=== PATIENT | female | born 1990 | race Caucasian/White ===

== ENCOUNTER 2023-03-16 19:48 | Outpatient (REF) | payer BC, SELFPAY ==
[2023-03-22 12:08] LABS: Age Gdln ACOG Testing Note (.); HPV Aptima Negative (Negative); IGP, Aptima HPV, rfx 16/18,45 Note (.)
== END 2023-03-16 19:49 | disposition home or self-care (01) ==
LOC: LAB 19:48
PROVIDERS: Visit Provider Obstetrics & Gynecology
DX: Z01.419 Encounter for gynecological examination (general) (routine) without abnormal findings (principal)
CPT/HCPCS: 87624; G0145

== ENCOUNTER 2023-08-31 16:41 | Emergency (ER) | payer BC, SELFPAY ==
[2023-08-31 16:44] VITALS: BP 134/98; PULSE 122; TEMP 38.4; O2SAT 98; BMI 22.7
--- OUTSIDE RECORDS SUMMARY | 2023-08-31 16:50 | XMS_ITS | CCD ---
Author Organization [facility] Care Team Providers Care Folder Machine Name Role Phone REQUEST, DR NONE LISTED Primary Care Unavaila JEAN CLAUDE Borges Admitting Unavailable JEAN CLAUDE BELTRAN Attending Unavailable JEAN CLAUDE BELTRAN Consulting Unavailable KARASIK, DR AGUIRRE Admitting Unavailable KARASIK, DR AGUIRRE Attending Unavailable REQUEST, NONE LISTED Primary Care Unavailcharles DIA, DR AGUIRRE Consulting Unavailable ZIEBER, DR JAMES Obrien Consulting Unavailable KARASIK, DR AGUIRRE Admitting Unavailable KARASIK, DR AGUIRRE Attending Unavailable REQUEST, NONE LISTED Primary Care Unavailcharles DIA, DR AGUIRRE Consulting Unavailable ABHIEBER, DR JAMES Obrien Consulting Unavailable [facility] -Lab Draw Family [facility] Attending Unavailable Raquel Stevenson Attending Unavailable Raquel Stevenson Attending Unavailable Raquel Stevenson Attending Unavailable Allergies Allergy Classification Reported Allergen(s) Allergy Type Date of Onset Reaction(s) Facility (2 sources) Latex; Translations: [Latex] Drug allergy (disorder) 09-04-2013 [facility] Repository Problems Problem Classification Problem Date Documented Da te Episodic/Chronic Nonmalignant breast conditions (6 sources) Solitary cyst of right breast; Translations: [Nipple discharge] Onset: 06-30-2021 Episodic Other screening for suspected conditions (not mental disorders or infectious disease) (4 sources) Other abnormal and inconclusive findings on diagnostic imaging of breast; Translations: [OTH ABN INCONCL FIND DX IMAG BREAST] Onset: 07-25-2021 Episodic Results Test Name Value Interpretation Reference Range Facil ity Ambulatory Visit Summaryon 0 01-01-2023 Ambulatory Visit Summary EMA VALENZUELA :1990 Visit Date:01/01/2023 Ambulatory Visit Instructions Your Diagnosis Wellness examination BMI 21.0-21.9, adult Non-smoker Your Care Team Attending Physician - Raquel Reardon Primary Care Physician - Raquel Reardon Procedures Performed Cyst, Tonsillectomy. Discharge Vitals Heart Rate (Peripheral) 68 Respiratory Rate 18 Blood Pressure 110/78 Height 166.8 cm Height 66 in Weight 58.70 kg Weight 129.14 lb BMI 21.1 What to do next Scheduled Follow-Up Appointments Wednesday 9:20 AM EDT Where: [facility] Invalid Interpretation Code BMI 21.0-21.9, adult [facility] Family [facility] Office/Clini c Noteon 01-01-2023 Family Medicine Office/Clinic Note HPI Staff Ema is a 32 year old female presents to establish care Establish Care: History: Last provider: Dr Pate Specialist: Dr Khurram ALLISON Any recent labs: no labs within the last year Health Maintenance UTD: Colonoscopy: no Mammogram: 2021 normal Pelvic/Pap:2019 normal covid: none Acute: Current issues/complaints: pt states she had gestational diabetes and she has had some of the same symptoms from when she was . pt states when she eats high carb meals she will feel like she has brain fog and will fell fatigued. History of Present Illness pt presents today for wellness visit. Review of Systems PHQ Score Initial Depression Screen Score: 0 ROS - Provider Constitutional: no fever, no chills, no sweats, no fatigue Respiratory: no shortness of breath, no cough, no orthopnea, no wheezing. Cardiovascular: no chest pain, no palpitations, no edema. Neurologic: no headache, no dizziness, no numbness, no weakness. Physical Exam Vitals & Measurements HR: 68(Peripheral) RR: 18 BP: 110/78 SpO2: 98% HT: 66 in HT: 166.8 cm WT: 58.70 kg WT: 129.14 lb BMI: 21.1 General: alert, no acute distress ENMT: oral mucosa moist, no pharyngeal erythema or exudate Cardiovascular: regular rate and rhythm, normal peripheral perfusion Respiratory: Lungs CTA, respirations non labored Extremities: no deformity, no trauma Neurological: oriented x 4, LOC appropriate for age, CN II-XII intact, motor strength equal & normal bilaterally, speech normal Assessment/Plan 1. Wellness examination (Z00.00: Encounter for general adult medical examination without abnormal findings) pt presents today to establish care/wellness visit. pt is not fasting so she will return next Wednesday when she is fasting to have labs done. pt states that she was gestational diabetic and was never really tested after having her child 3 years ago and is concerned that she is having trouble with her blood sugar. when she eats heavy carbs she feels the same way she did when she was and her BS was high. will check labs. physical exam WNL. All questions answered. RTC as needed Ordered: CBC w/ Auto Diff Comprehensive Metabolic Panel Lipid Panel Thyroid Stimulating Hormone 2. BMI 21.0-21.9, adult (Z68.21: Body mass index [BMI] 21.0-21.9, adult) BMI eduction complete Ordered: CBC w/ Auto Diff Comprehensive Metabolic Panel Lipid Panel Thyroid Stimulating Hormone 3. Non-smoker (Z78.9: Other specified health status) continue not smoking Ordered: CBC w/ Auto Diff Comprehensive Metabolic Panel Lipid Panel Thyroid Stimulating Hormone Follow-up No qualifying data available Problem List/Past Medical History Ongoing Wellness examination Historical No qualifying data Procedure/Surgical History Cyst, Tonsillectomy. Medications No active medications Allergies Latex (Hives) Social History Tobacco Never (less than 100 in lifetime) Tobacco Use:. Never Smokeless Tobacco Use:. Household tobacco concerns: No., 01/01/2023 Family History Diabetes mellitus type 2: Grandparent. Hypertension: Grandparent. Immunizations Vaccine Date Status influenza virus vaccine, inactivated 03/02/2022 Recorded influenza virus vaccine, inactivated 03/04/2021 Recorded influenza virus vaccine, inactivated 03/04/2020 Recorded Normal [facility] Comment on above: Result Comment: Electronically Signed By : Raquel Reardon\sunshine\Date and Time Signed: 01/01/23 13:57 EDT MAMMO POST BIOPSY RIGHTon MAMMO POST BIOPSY RIGHT Patient: EMA VALENZUELA. Exam Date: 07/25/2021 : 1990 Gender:F Ordering : DR TIMOTHY DIA . Admission #: [id number] Family : Order #: [id number] CLICK HERE TO VIEW EXAM This report includes an Addendum and supersedes previous reports for this exam. RADIOLOGY REPORT PROCEDURE: MAMMOGRAM POST BIOPSY IMAGES COMPARISON: US VAC ASST BX BRST RT W CLIP, 07/25/2021. US BREAST RIGHT LIMITED, 07/16/2021. MG MAMM RIO DIAG W CAD, 07/16/2021. INDICATIONS: Mammography abnormal BREAST COMPOSITION: Heterogeneously dense,which may obscure small masses. FINDINGS: BIOPSY MARKER: A metallic marker has been placed in the targeted location within the subareolar region of the right breast. BREAST FINDINGS: Expected post biopsy findings. RECOMMENDATIONS: Dictated by: James Correa M.D. on 07/25/2021 at 09:57 Approved by: James Correa M.D. on 07/25/2021 at 09:59 ADDENDUM: FINDINGS: DIAGNOSTIC CATEGORY 3--PROBABLY BENIGN FINDING. THE FOLLOWING FINDING(S) HAS A HIGH PROBABILITY OF A BENIGN ETIOLOGY: RECOMMENDATIONS: SHORT TERM FOLLOW-UP DIAGNOSTIC MAMMOGRAM RIGHT BREAST IN 6 MONTHS. Dictated by: James Correa M.D. on 07/30/2021 at 15:48 Approved by: James Correa M.D. on 07/30/2021 at 15:48 Normal [facility] US VAC ASST BX BRST RT W CLI Solo 07-25-2021 US VAC ASST BX BRST RT W CLIP Patient: EMA VALENZUELA Exam Date: 07/25/2021 : 1990 Gender:F Ordering : DR TIMOTHY DIA . Admission #: [id number] Family : Order #: [id number] CLICK HERE TO VIEW EXAM This report includes an Addendum and supersedes previous reports for this exam. RADIOLOGY REPORT PROCEDURE: ULTRASOUND BIOPSY VACCUUM ASSISTED RIGHT WITH CLIP COMPARISON: US BREAST RIGHT LIMITED, 07/16/2021. INDICATIONS: Mammography abnormal DESCRIPTION: After obtaining informed consent, a vacuum assisted ultrasound-guided biopsy was performed in the usual sterile manner. The location of the biopsy was then marked as indicated below. FINDINGS: RECOMMENDATIONS: SPECIMEN #, LOCATION: 3 core specimens; subareolar right breast. BIOPSY NEEDLE: 13 gauge Elite (r) vacuum core biopsy needle. MARKERS(S) PLACED: A single metallic marker was placed in the appropriate targeted location. MEDICATION: Buffered 1% lidocaine with epinephrine administered locally. COMPLICATIONS: None. PATHOLOGY LAB: Pending. CONCLUSION: 1. Uneventful ultrasound-guided breast biopsy. 2. Pathology results are pending. An addendum to this report will be provided after pathology results are available. Dictated by: James Correa M.D. on 07/25/2021 at 10:00 Approved by: James Correa M.D. on 07/25/2021 at 10:01 ADDENDUM: Final pathologic diagnosis: No evidence of neoplasm. Benign breast cyst. This report was transmitted to the referring physician's office on July 30, 2021, and the office called to confirm receipt. Dictated by: James Correa M.D. on 07/30/2021 at 15:47 Approved by: James Correa M.D. on 07/30/2021 at 15:48 Normal [facility] MG MAMM RIO DIAG W CADon MG MAMM RIO DIAG W CAD Patient: EMA VALENZUELA Exam Date: 07/16/2021 : 1990 Gender:F Ordering : DR TIMOTHY DIA . Admission #: [id number] Family : Order #: [id number] CLICK HERE TO VIEW EXAM RADIOLOGY REPORT PROCEDURE: MAMMOGRAM BILATERAL DIAGNOSTIC DIGITAL WITH COMPUTER AIDED DETECTION, 07/16/2021, 13:50 ULTRASOUND BREAST RIGHT LIMITED, 07/16/2021, 14:38 COMPARISON: None. INDICATIONS: Discharge from nipple Calculator Name NCI Breast Cancer Risk Assessment Tool 5 Year Breast Cancer Risk Not Applicable. Lifetime Breast Cancer Risk Not Applicable. Personal Breast Cancer No Personal Ovarian Cancer No Treatments None Family Cancers Grandmother-maternal with breast cancer at age 70. LOCATION: [facility] BREAST COMPOSITION: Heterogeneously dense,which may obscure small masses. FINDINGS: DIAGNOSTIC CATEGORY 4--SUSPICIOUS FOR MALIGNANCY. FINDING DOES NOT EXHIBIT CLASSIC FINDINGS OF BREAST CANCER: RIGHT BREAST: No significant suspicious finding on today's mammogram. Ultrasound evaluation demonstrates multiple dilated ducts in the subareolar region. A focal, markedly dilated duct measures 7 x 5 x 4 mm and appears to contain internal debris versus nodule. No appreciable internal blood flow. Consider MRI of the breasts for further evaluation of patient's bloody nipple discharge versus ultrasound-guided biopsy of the above described dilated duct. Biopsy is recommended. Findings, recommendations, and alternatives have been discussed with the patient. Our radiology department nurse will contact the patient to child care center assistant director scheduling of biopsy. LEFT BREAST: No significant suspicious finding. RECOMMENDATIONS: ULTRASOUND-GUIDED CORE BIOPSY: RIGHT BREAST PLEASE NOTE: A NORMAL MAMMOGRAM DOES NOT EXCLUDE THE POSSIBILITY OF BREAST CANCER. A CLINICALLY SUSPICIOUS PALPABLE LUMP SHOULD BE BIOPSIED. Dictated by: James Correa M.D. on 07/16/2021 at 14:48 Approved by: James Correa M.D. on 07/16/2021 at 15:37 Normal [facility] US BREAST RIGHT LIMITEDon US BREAST RIGHT LIMITED Patient: EMA VALENZUELA Exam Date: 07/16/2021 : 1990 Gender:F Ordering : DR TIMOTHY DIA . Admission #: [id number] Family : Order #: [id number] CLICK HERE TO VIEW EXAM RADIOLOGY REPORT PROCEDURE: MAMMOGRAM BILATERAL DIAGNOSTIC DIGITAL WITH COMPUTER AIDED DETECTION, 07/16/2021, 13:50 ULTRASOUND BREAST RIGHT LIMITED, 07/16/2021, 14:38 COMPARISON: None. INDICATIONS: Discharge from nipple Calculator Name NCI Breast Cancer Risk Assessment Tool 5 Year Breast Cancer Risk Not Applicable. Lifetime Breast Cancer Risk Not Applicable. Personal Breast Cancer No Personal Ovarian Cancer No Treatments None Family Cancers Grandmother-maternal with breast cancer at age 70. LOCATION: [facility] BREAST COMPOSITION: Heterogeneously dense,which may obscure small masses. FINDINGS: DIAGNOSTIC CATEGORY 4--SUSPICIOUS FOR MALIGNANCY. FINDING DOES NOT EXHIBIT CLASSIC FINDINGS OF BREAST CANCER: RIGHT BREAST: No significant suspicious finding on today's mammogram. Ultrasound evaluation demonstrates multiple dilated ducts in the subareolar region. A focal, markedly dilated duct measures 7 x 5 x 4 mm and appears to contain internal debris versus nodule. No appreciable internal blood flow. Consider MRI of the breasts for further evaluation of patient's bloody nipple discharge versus ultrasound-guided biopsy of the above described dilated duct. Biopsy is recommended. Findings, recommendations, and alternatives have been discussed with the patient. Our radiology department nurse will contact the patient to child care center assistant director scheduling of biopsy. LEFT BREAST: No significant suspicious finding. RECOMMENDATIONS: ULTRASOUND-GUIDED CORE BIOPSY: RIGHT BREAST PLEASE NOTE: A NORMAL MAMMOGRAM DOES NOT EXCLUDE THE POSSIBILITY OF BREAST CANCER. A CLINICALLY SUSPICIOUS PALPABLE LUMP SHOULD BE BIOPSIED. Dictated by: James Correa M.D. on 07/16/2021 at 14:48 Approved by: James Correa M.D. on 07/16/2021 at 15:37 Normal [facility] CULTURE WOUNDon 06-29-2021 CULTURE WOUND Specimen Comments: RIGHT BREAST WOUND SWAB Culture Observations: Light growth of NORMAL SKIN IKE. Normal [facility] Comment on above: Performed By: #### WOUNDCX #### [facility] [address] [address] [address] Dawson Wells Encounters Encounter Date Encounter Type Care Provider Facility Start: 02-19-2023 ambulatory Daisha e -Lab Draw [facility] [place] [facility] Start: 01-15-2023 ambulatory Raquel Stevenson [facility] Start: 01-01-2023 End: 01-02-2023 ambulatory Raquel Stevenson [facility] Start: 09-11-2022 ambulatory Facility:[facility] [place] Start: 07-25-2021 End: 07-25-[address] TIMOTHY DIA Facility: Start: 07-16-2021 End: 07-17-[address] TIMOTHY DIA Facility: Start: 06-29-2021 End: 06-29-[address] LERNER LISTED REQUEST Facility: Payers Date Payer Category Payer Unknown [id number] 2.16.84 [id number] 1990 Unknown [id number] 2.16.84 [id number] 1990 Unknown [id number] 2.16.84 [id number] 1990 Unknown [id number] 2.16.8 [id number] 1990 Unknown [id number] 2.16.8 [id number] 1990 Unknown [id number] 2.16.8 [id number] 1959 Unknown [id number] Summary Purpose Family History No Family History Records FoundNo Family History Records Found Advance Directives No Advanced Directives Records FoundNo Advanced Directives Records Found Additional Source Comments INFORMATION SOURCE (unrecogn ized section and content) DATE CREATED AUTHOR 07/30/2021 [facility] DATE CREATED AUTHOR AUTHOR'S DOLLY ATANNIA 02/10/2023 [facility] FOR RECORDS PERTAINING TO PATIENTS WHO ARE OR HAVE BEEN ENROLLED IN A CHEMICAL DEPENDENCY/SUBSTANCEABUSE PROGRAM, SOME INFORMATION MAY BE OMITTED. This clinical summary was aggregated from multiple sources. Caution should be exercised in using it in the provision of clinical care. This summary normalizes information from multiple sources, and as a consequence, information in this document may materially change the coding, format and clinical context of patient data. In addition, data may be omitted in some cases. CLINICAL DECISIONS SHOULD BE BASED ON THE PRIMARY CLINICAL RECORDS. [facility] [email or web address] [facility]. provides no warranty or guarantee of the accuracy or completeness of information in this document.
--- NOTE | 2023-08-31 16:53 | XR_ITS ---
The [address] [address] Patient Name: EMA VALENZUELA MRN: [id number] date: 1990 Sex: F Assigned Patient Location: ER Current Patient Location: ER Accession/Order Number: [id number] Exam Date: 08/31/2023 17:06 Report Date: 08/31/2023 17:30 At the request of: DENIS GAINES Procedure: XR ankle LT min 3V STUDY: XR ankle LT min 3V, [id number] HISTORY: left ankle injury COMPARISON: None FINDINGS: No acute fracture, dislocation, or suspicious osseous lesion. No significant degenerative changes. No lucent lesion of the talar dome. Tiny plantar calcaneal spur. XR/XR ankle LT min 3V IMPRESSION: No acute osseous abnormality. Electronically authenticated by: LUZ ELENA PARSON Date: 08/31/2023 17:30
[2023-08-31] MEDS: ACETAMINOPHEN 500 MG TABLET 1000 MG PO (17:02)
[2023-08-31] MEDS: IBUPROFEN 600 MG TABLET PO (17:02)
[2023-08-31 17:18] LABS: Influenza Virus A Antigen Negative; Influenza Virus B Antigen Negative; Internal Control Within Normal Limits; SARS-CoV-2 Ag NEGATIVE (NEGATIVE)
[2023-08-31 17:20] VITALS: PULSE 112
[2023-08-31 18:04] VITALS: PULSE 102
[2023-08-31 18:08] VITALS: TEMP 37.6
--- NOTE | 2023-08-31 18:14 | ED.LOWEXI1 ---
HPI HPI - Extremity Injury (Lower) General Chief Complaint: Extremity Injury, Lower Time Seen by Provider: 08/31/23 16:50 Source: patient Mode of arrival: walk-in Limitations: no limitations History of Present Illness HPI Narrative: Patient tripped last night while going down her basement steps. She twisted the left ankle and has pain along the outside of the ankle, which is where the majority of her ankle pain is located. She has no pain near the left knee or in the left foot. Of note, she developed cough/cold symptoms one day ago. She now has fever and is tachycardic. She told us that the family had Influenza B about a month ago. She said that several of the kids at home are once again ill, but the swabs at the urgent care obtained on 08/27/23 were all negative. Patient denied any GI or symptoms. She took an Flaquita [place] cough/cold OTC med around 9am today but nothing since - she does not know if there was acetaminophen or motrin in the med. Related Data Home Medications ?Medication ?Instructions ?Recorded ?Confirmed No Known Home Medications 08/31/23 08/31/23 Allergies Allergy/AdvReac Type Severity Reaction Status Date / Time latex AdvReac Mild Verified 08/31/23 16:44 Opioid HPI Opioid Management Most Recent Pain and Opioid Data: No Data to Display Exam Narrative Exam Narrative: Nurses notes and vital signs reviewed and patient is not hypoxic. Febrile T101F General: Well-appearing and in no apparent distress. Skin: Warm, dry, no pallor noted. No rash. Head: Normocephalic, atraumatic. Neck: Supple, non-tender. No cervical lymphadenopathy Eye: Pupils are equal, round and EOMI. No scleral icterus. Ears, Nose, Mouth, and Throat: Oral mucosa is moist Cardiovascular: Tachycardia. Respiratory: No accessory muscle use or respiratory distress. Lungs are clear to auscultation, no wheezing, rales or rhonchi Musculoskeletal: Left knee and foot with normal range of motion, no calf or popliteal tenderness, no lower extremity edema/swelling. The left ankle also has normal ROM But there is some swelling along the lateral malleolus which is also tender. Achilles is intact. No left 5th metatarsal tenderness. No proximal left fibular tenderness Neurological: A&O x4. No cranial nerve dysfunction observed. No truncal ataxia. Moves all extremities. Sensation intact. Psychiatric: Cooperative and interactive. Normal mood and affect. Constitutional Vital Signs, click to edit/add: Last Vital Signs Temp 99.6 F 08/31/23 18:08 Pulse 102 H 08/31/23 18:04 Resp 18 08/31/23 16:44 BP 134/98 H 08/31/23 16:44 Pulse Ox 98 08/31/23 16:44 O2 Del Method Room Air 08/31/23 16:44 Course Vital Signs Vital signs: Vital Signs Temperature 101.1 F H 08/31/23 16:44 Pulse Rate 122 H 08/31/23 16:44 Respiratory Rate 18 08/31/23 16:44 Blood Pressure 134/98 H 08/31/23 16:44 Pulse Oximetry 98 08/31/23 16:44 Oxygen Delivery Method Room Air 08/31/23 16:44 Temperature 99.6 F 08/31/23 18:08 Pulse Rate 102 H 08/31/23 18:04 Respiratory Rate 18 08/31/23 16:44 Blood Pressure 134/98 H 08/31/23 16:44 Pulse Oximetry 98 08/31/23 16:44 Oxygen Delivery Method Room Air 08/31/23 16:44 MDM - Extremity Injury (Lower) MDM Narrative Medical decision making narrative: No acute fracture identified. The patient was given Motrin and Tylenol in the emergency department. Swabs for Influenza and COVID were negative. She likely has some other viral infection as I do not see any evidence of acute bacterial infection. X-rays did not reveal acute fracture of the left ankle. The emergency department nurse applied an Didier wrap to the patient's left ankle. She was neurovascularly intact distally afterward. She was discharged home. Patient advised to rest, stay at home, practice social distancing, take Motrin and Tylenol for pain and fever if not allergic, stay well hydrated with Gatorade or similar drinks if vomiting or eat as tolerated if not and take any meds as prescribed. Reviewed reasons to return including rapid increase in respiratory rate, shortness of breath, confusion, inability to keep down sips of swallowed liquids for more than 24 hours. Asked patient to encourage any ill contacts to stay home and practice similar advice. Lab Data Attestation: I reviewed the patient's lab results. Labs: Lab Results 08/31/23 Range/Units 17:00 Influenza Type A Ag Negative Influenza Type B Ag Negative SARS-CoV-2 Ag (CV2AG) Negative (NEGATIVE) Imaging Data xr ankle: Attestation: I have reviewed the pertinent imaging results. Radiologist's impression: ITS Impressions Ankle X-Ray 08/31/23 16:53 IMPRESSION: No acute osseous abnormality. Electronically authenticated by: LUZ ELENA PARSON Date: 08/31/2023 17:30 Discharge Plan Discharge Stand Alone Forms: Portal Instructions Chief Complaint: Extremity Injury, Lower Clinical Impression: URI (upper respiratory infection), Acute febrile illness, Left ankle sprain Patient Disposition: Home, Self-Care Time of Disposition Decision: 18:21 Prescriptions / Home Meds: No Action No Known Home Medications Print Language: Japanese Instructions: Ankle Sprain (ED), Fever in Adults (ED), Upper Respiratory Infection (ED) Referrals: JACKY TONY [Primary Care Provider] - 1 week
== END 2023-08-31 18:37 | disposition home or self-care (01) ==
PROVIDERS: Emergency Provider Emergency Medicine; PCP Nurse Practitioner
DX: S93.402A Sprain of unspecified ligament of left ankle, initial encounter (principal); J06.9 Acute upper respiratory infection, unspecified; R50.9 Fever, unspecified; W18.40XA Slipping, tripping and stumbling without falling, unspecified, initial encounter; Z20.822 Contact with and (suspected) exposure to COVID-19
CPT/HCPCS: 73610; 87804; 87811; 99284